=== PATIENT | female | born 1955 | race Caucasian/White ===

== ENCOUNTER 2019-06-26 11:18 | Emergency (ER) | payer BC ==
[~2019-06-26] VITALS: Ht 167.6 cm; Wt 68.8 kg
[~2019-06-26 11:18] MED LIST: CIPR500T4 PO; METR500T PO
[2019-06-26 11:29] VITALS: Ht 167.6 cm; Wt 68.8 kg
--- NOTE | 2019-06-26 12:43 | ERD ---
ER Documentation Chief Complaint Chief Complaint abdominal pain, r/o diverticulitis, by dr Felipe HPI 63-year-old female presenting with left lower quadrant pain for the past 3 days. She was seen by Dr. Felipe on today and sent in for evaluation for possible diverticulitis. Patient denies any history of diverticulitis. She does have a history of gastritis. Pain is constant, aching, 8 out of 10, nonradiating, with no alleviating or exacerbating factors. Denies any fever, chills, nausea, vomiting, diarrhea, constipation, melena or hematochezia. Last colonoscopy was 10 years ago and was normal at that time. ROS All systems reviewed and are negative except as per history of present illness. Medications Home Meds Active Scripts Ciprofloxacin Hcl* (Ciprofloxacin Hcl*) 500 Mg Tablet, 500 MG PO BID for 10 Days, TAB Prov:WALE ALFARO MD 06/26/19 Metronidazole* (Flagyl*) 500 Mg Tablet, 500 MG PO TID for 10 Days, TAB Prov:WALE ALFARO MD 06/26/19 Allergies Allergies: Coded Allergies: No Known Allergy (Unverified , 06/26/19) PMhx/Soc Medical and Surgical Hx: pt denies Medical Hx, pt denies Surgical Hx Hx Alcohol Use: No Hx Substance Use: No Hx Tobacco Use: No FmHx Family History: No diabetes Physical Exam Vitals Vital Signs Date Temp Pulse Resp B/P (MAP) Pulse Ox O2 O2 Flow FiO2 Time Delivery Rate 06/26/19 98.4 66 18 141/74 100 11:29 (96) Physical Exam Const: No acute distress Head: Atraumatic Eyes: Normal Conjunctiva ENT: Normal External Ears, Nose and Mouth. Neck: Full range of motion. No meningismus. Resp: Clear to auscultation bilaterally Cardio: Regular rate and rhythm, no murmurs Abd: Soft, moderate left lower quadrant tenderness to palpation with no rebound or guarding., non distended. Normal bowel sounds Skin: No petechiae or rashes Back: No midline or flank tenderness Ext: No cyanosis, or edema Neur: Awake and alert Psych: Normal Mood and Affect Result Diagram: 06/26/19 1250 06/26/19 1250 Results 24 hrs Laboratory Tests Test 06/26/19 12:50 White Blood Count 6.6 10^3/ul Red Blood Count 4.32 10^6/ul Hemoglobin 12.3 g/dl Hematocrit 38.8 % Mean Corpuscular Volume 89.8 fl Mean Corpuscular Hemoglobin 28.5 pg Mean Corpuscular Hemoglobin Concent 31.7 g/dl Red Cell Distribution Width 14.5 % Platelet Count 243 10^3/UL Mean Platelet Volume 10.1 fl Immature Granulocytes % 0.300 % Neutrophils % 66.0 % Lymphocytes % 23.7 % Monocytes % 6.5 % Eosinophils % 3.0 % Basophils % 0.5 % Nucleated Red Blood Cells % 0.0 /100WBC Immature Granulocytes # 0.020 10^3/ul Neutrophils # 4.4 10^3/ul Lymphocytes # 1.6 10^3/ul Monocytes # 0.4 10^3/ul Eosinophils # 0.2 10^3/ul Basophils # 0.0 10^3/ul Nucleated Red Blood Cells # 0.0 10^3/ul Urine Color YELLOW Urine Clarity SLIGHTLY CLOUDY Urine pH 6.0 Urine Specific [place] 1.021 Urine Ketones NEGATIVE mg/dL Urine Nitrite NEGATIVE mg/dL Urine Bilirubin NEGATIVE mg/dL Urine Urobilinogen NEGATIVE mg/dL Urine Leukocyte Esterase NEGATIVE Joanne/ul Urine Microscopic RBC 3 /HPF Urine Microscopic WBC 0 /HPF Urine Squamous Epithelial Cells FEW /HPF Urine Mucus FEW /HPF Urine Hemoglobin 1+ mg/dL Urine Glucose NEGATIVE mg/dL Urine Total Protein NEGATIVE mg/dl Sodium Level 141 mmol/L Potassium Level 4.4 mmol/L Chloride Level 105 mmol/L Carbon Dioxide Level 29 mmol/L Anion Gap 7 Blood Urea Nitrogen 25 mg/dl Creatinine 0.69 mg/dl Est Glomerular Filtrat Rate mL/min > 60 mL/min Glucose Level 91 mg/dl Calcium Level 9.6 mg/dl Total Bilirubin 0.5 mg/dl Direct Bilirubin 0.00 mg/dl Indirect Bilirubin 0.5 mg/dl Aspartate Amino Transf (AST/SGOT) 32 IU/L Alanine Aminotransferase (ALT/SGPT) 41 IU/L Alkaline Phosphatase 72 IU/L Total Protein 7.8 g/dl Albumin 3.9 g/dl Globulin 3.90 g/dl Albumin/Globulin Ratio 1.00 Current Medications Medications Dose Sig/Ochoa Start Time Status Last (Trade) Ordered Route PRN Stop Time Admin Dose Reason Admin 500 mg ONCE ONCE 06/26/19 DC 06/26/19 Metronidazole PO 13:30 13:25 (Flagyl) 06/26/19 13:31 500 mg ONCE ONCE 06/26/19 DC 06/26/19 Ciprofloxacin PO 13:30 13:24 (Cipro) 06/26/19 13:31 Procedures/MDM EMERGENT LABS AND DIAGNOSTIC STUDIES: Lab Results above were reviewed and interpreted by me. CBC: no anemia or evidence of infection CMP: No evidence of clinically significant electrolyte abnormality, acidosis, renal failure, hypoglycemia, liver disease, or biliary obstruction UA: no evidence of infection Radiology Results as interpreted by Radiology below were reviewed by Marvin Alfaro MD: CT abdomen and pelvis shows evidence of proximal acute sigmoid diverticulitis with no evidence of perforation or intra-abdominal abscess. Initial Nursing notes reviewed. Previous Medical Records requested via the Electronic Health Record. EMERGENCY DEPARTMENT COURSE / MEDICAL DECISION MAKING: Patient is presenting with left lower quadrant pain and work-up consistent with acute diverticulitis without complication. She is afebrile and hemodynamically stable. Patient was given an oral dose of Flagyl and Cipro here and will be discharged with a prescription for 10 days. Follow-up with Dr. Felipe on recommended as she will need a referral to GI for colonoscopy after her infection resolves. Patient and her feel comfortable with discharge plan. Return precautions discussed. Discharged in a stable condition Patient's blood pressure was elevated (>120/80) but appears stable without evidence of hypertensive emergency or urgency. The patient was counseled about the risks of hypertension and urged to pursue outpatient monitoring and therapy within a week with their primary care physician. Departure Diagnosis: Primary Impression: Sigmoid diverticulitis Condition: Stable WALE ALFARO MD Jun 26, 2019 12:43
[2019-06-26] MEDS ORDERED: CIPROFLOXACIN 500 MG TAB PO ONE (13:30)
[2019-06-26] MEDS ORDERED: metroNIDAZOLE 500 MG TAB PO ONE (13:30)
[2019-06-26 13:44] VITALS: BP 136/77; PULSE 81; RESP 18
== END 2019-06-26 13:46 | disposition home or self-care (01) ==
LOC: E/R 11:18
DX: K57.32 Diverticulitis of large intestine without perforation or abscess without bleeding (principal)
CPT/HCPCS: 36415; 74176; 80053; 81001; 85025